=== PATIENT | female | born 1960 ===

== ENCOUNTER 2018-03-01 16:13 | Emergency (ER) | payer OTHER ==
[~2018-03-01] VITALS: Ht 170.2 cm; Wt 75.0 kg
[2018-03-01] MEDS ORDERED: DOXYCYCL HYC100 M4 PO (17:14)
[2018-03-01] MEDS ORDERED: HYDROCO/APAP1 TA9 PO (17:15)
[2018-03-01 17:36] VITALS: BP 154/85
== END 2018-03-01 18:20 | disposition home or self-care (01) ==
LOC: ED 16:13
DX: T81.89XA Other complications of procedures, not elsewhere classified, initial encounter (principal)

== ENCOUNTER → 2018-04-17 | Outpatient (REF) | payer OTHER ==
[~2018-04-17] MED LIST: DOXYCYCL HYC100 M4 PO; HYDROCO/APAP1 TA9 PO
== END | disposition home or self-care (01) ==
LOC: DI 16:51
PROVIDERS: ATTEND Internal Medicine
DX: C50.112 Malignant neoplasm of central portion of left female breast (principal)